=== PATIENT | male | born 1990 | race Hispanic/Latino ===

== ENCOUNTER 2017-10-16 19:28 | Emergency (ER) | payer OTHER ==
[~2017-10-16] VITALS: Ht 172.7 cm; Wt 97.5 kg
--- OUTSIDE RECORDS SUMMARY | 2017-10-16 19:58 | XMS | Clinical Summary ---
Demographics + + + | Address | [address] | | | [place] [address] | + + + | Home Phone | | + + + | Preferred Language | Unknown | + + + | Marital Status | | + + + | Pentecostalism Affiliation | Unknown | + + + | Race | Unknown | + + + | Ethnic Group | Unknown | + + + Author + + + | Author | [facility] | | | and [place] | + + + | Organization | [facility] | | | and [place] | + + + | Address | Unknown | + + + | Phone | Unavailable | + + + Support + + + + + | Name | Relationship | Address | Phone | + + + + + | Babita Celis | ECON | [address] | | | | | [place] | | | | | [address] | | + + + + + | Arlette Doran J | ECON | [address] | | | | | [place] [address] | | + + + + + Care Team Providers + +------+ + | Care Machine Maintenance Supervisor Name | Role | Phone | + +------+ + | No, Physician | PP | Unavailable | + +------+ + Allergies No Known Allergies Current Medications + + +--------+---------+------+------+-------+ | Prescription | Sig. | Disp. | Refills | Star | End | Statu | | | | | | t | Date | s | | | | | | Date | | | + + +--------+---------+------+------+-------+ | ibuprofen | Take 1 tablet by | 20 | 0 | 03/1 | | Activ | | (ADVIL,MOTRIN) 600 | mouth every 6 hours | tablet | | 0/20 | | e | | MG tablet | as needed for Pain | | | 14 | | | | | (Take for up to 5 | | | | | | | | days). | | | | | | + + +--------+---------+------+------+-------+ | | Take 1 tablet by | 15 | 0 | 03/1 | | Activ | | HYDROcodone-acetamin | mouth every 6 hours | tablet | | 0/20 | | e | | ophen (NORCO) 5-325 | as needed for Pain. | | | 14 | | | | mg per tablet | | | | | | | + + +--------+---------+------+------+-------+ Active Problems Not on file Social History + +-------+ +--------+------+ | Tobacco Use | Types | Packs/Day | Years | Date | | | | | Used | | + +-------+ +--------+------+ | Never Smoker | | | | | + +-------+ +--------+------+ + + +---------+ + | Alcohol Use | Drinks/We | oz/Week | Comments | | | ek | | | + + +---------+ + | Yes | | | occasional | + + +---------+ + + + + | Sex Assigned at | Date Recorded | | | | + + + | Not on file | | + + + Last Filed Vital Signs + + + + | Vital Sign | Reading | Time Taken | + + + + | Blood Pressure | 130/86 | 09/01/20132146 PDT | + + + + | Pulse | 78 | 09/01/20132146 PDT | + + + + | Temperature | 36.3 C (97.3 F) | 09/01/20132146 PDT | + + + + | Respiratory Rate | 16 | 09/01/20132146 PDT | + + + + | Oxygen Saturation | 96% | 09/01/20132146 PDT | + + + + | Inhaled Oxygen | - | - | | Concentration | | | + + + + | Weight | 103.4 kg (228 lb) | 09/01/20132146 PDT | + + + + | Height | 167.6 cm (5' 6") | 09/01/20132146 PDT | + + + + | Body Mass Index | 36.8 | 09/01/20132146 PDT | + + + + Plan of Treatment + + + + + | Health Maintenance | Due Date | Last Done | Comments | + + + + + | Vaccine: | | | | | Dtap/Tdap/Td (1 - | 0 | | | | Tdap) | | | | + + + + + | Vaccine: Influenza | | | | | (Season Ended) | 8 | | | + + + + + Results Not on filefrom Last 3 Months Insurance +-------+--------+ +------+ + + | Payer | Benefi | Subscriber | Type | Phone | Address | | | t Plan | ID | | | | | | / | | | | | | | Group | | | | | +-------+--------+ +------+ + + | MOD[employer] | MODA | xxxxxxxxx | PPO | [phone] | [address] [address] | | | [place] | | | [phone] | [place] [address] | | | [place] | | | | | | | [place] | | | | | +-------+--------+ +------+ + + + +--------+ +--------+ + + | Guarantor Name | Accoun | Relation to | Date | Phone | Billing Address | | | t Type | Patient | of | | | | | | | | | | + +--------+ +--------+ + + | WESTLEY CELIS | Person | Self [birth year] | Home: | [address] | | | al/Fam | | 1990 | [phone] | [place] [address] | | | mary | | | 1990 | | + +--------+ +--------+ + +
--- OUTSIDE RECORDS SUMMARY | 2017-10-16 19:58 | XMS | Clinical Summary ---
Demographics + + + | Address | [address] | | | [place] [address] | + + + | Home Phone | | + + + | Preferred Language | Unknown | + + + | Marital Status | | + + + | Sikh Affiliation | Unknown | + + + | Race | Unknown | + + + | Ethnic Group | Unknown | + + + Author + + + | Author | [facility] | | | and [place] | + + + | Organization | [facility] | | | and [place] | [...] [place] | | | | | [address] | | + + + + + | Arlette Doran J | ECON | [address] | | | | | [place] [address] | | + + + + + Care Team Providers + +------+ + | Care Big 6 Dealer Name | Role | Phone | + [...] | [employer] | xxxxxxxxx | PPO | [phone] | [address] [address] | | | [place] | | | [phone] | [place] [address] | | | [place] | | | [...] Self | [birth year] | Home: | [address] | | | al/Fam | | 1990 | [phone] | [place] [address] | | | mary | | | 1990 | | + +--------+ +--------+ + +
== END 2017-10-16 21:10 | disposition home or self-care (01) ==
LOC: ED 19:28
PROC: 0HQ1XZZ Repair Face Skin, External Approach (ICD-10-PCS; principal; 2017-10-16)
DX: S01.112A Laceration without foreign body of left eyelid and periocular area, initial encounter (principal); Z91.011 Allergy to milk products; W26.8XXA Contact with other sharp object(s), not elsewhere classified, initial encounter; Y92.39 Other specified sports and athletic area as the place of occurrence of the external cause; Z23 Encounter for immunization
CPT/HCPCS: 12011; 90471; 90715; 99282

== ENCOUNTER → 2018-06-22 | Emergency (ER) | payer OTHER ==
[~2018-06-22] VITALS: Ht 172.7 cm; Wt 97.5 kg
[~2018-06-22] MED LIST: AMOXICILLIN500 MG PO; TRAMADOL HCL50 MG PO
== END ==
LOC: ED 18:48
DX: J02.0 Streptococcal pharyngitis (principal); E03.9 Hypothyroidism, unspecified; Z91.011 Allergy to milk products
CPT/HCPCS: 80053; 85025; 87502; 87880; 96361; 96374; 96375; 99284-25; J1200; J1885; J2765; J7030

== ENCOUNTER → 2018-11-09 | Emergency (ER) | payer OTHER ==
[~2018-11-09] VITALS: Ht 172.7 cm; Wt 95.2 kg
--- OUTSIDE RECORDS SUMMARY | ~2018-11-09 | XMS | Clinical Summary ---
Demographics + + + | Address | [address] | | | [place] [address] | + + + | Home Phone | | + + + | Preferred Language | Unknown | + + + | Marital Status | | + + + | Restorationism Affiliation | Unknown | + + + | Race | Unknown | + + + | Ethnic Group | Unknown | + + + Author + + + | Author | [facility] | | | and [place] | + + + | Organization | [facility] | | | and [place] | + + + | Address | Unknown | + + + | Phone | Unavailable | + + + Support + + + + + | Name | Relationship | Address | Phone | + + + + + | Babita Sheets | ECON | [address] | | | | | [place] | | | | | [address] | | + + + + + | Arlette Doran J | ECON | [address] | | | | | [place] [address] | | + + + + + Care Team Providers + +------+ + | Care Boat Designer Name | Role | Phone | + +------+ + | No, Physician | PP | Unavailable | + +------+ + Allergies No Known Allergies Medications + + + +---------+------+------+-------+ | Medication | Sig | Dispensed | Refills | Star | End | Statu | | | | | | t | Date | s | | | | | | Date | | | + + + +---------+------+------+-------+ | ibuprofen | Take 1 tablet by [...] | | | | | + + + +---------+------+------+-------+ | | Take 1 tablet by | 15 | 0 | 03/1 | | Activ | | HYDROcodone-acetamin | mouth every 6 hours | tablet | | 0/20 | | e | | ophen (NORCO) 5-325 | as needed for Pain. | | | 14 | | | | mg per tablet | | | | | | | + + + +---------+------+------+-------+ Active Problems Not on file Social History [...] on file | | + + + + + + + | Job Start Date | Occupation | Industry | + + + + | Not on file | Not on file | Not on file | + + + + + + + + | Travel History | Travel Start | Travel End | + + + + + + | No recent travel history available. | + + Last Filed Vital Signs + + + + | Vital Sign | Reading | Time Taken | + + + + | Blood Pressure | 130/86 | 09/01/2013 2147 PDT | + + + + | [...] | | | | (Season Ended) | 9 | | | + + + + + Results Not on filefrom Last 3 Months Insurance +-------+--------+ +--------+ + +------+ | Payer | Benefi | Subscriber | Effect | Phone | Address | Type | | | t Plan | ID | berenice | | | | | | / | | Dates | | | | | | Group | | | | | | +-------+--------+ +--------+ + +------+ | MOD[employer] | MODA | [id number] | | [phone] | [address] | PPO | | | [place] | | [phone] | | | | [place] | | esent | | [place], | | | | [place] | | | | [place] [address] | | +-------+--------+ +--------+ + +------+ + +--------+ +--------+ + + | Guarantor Name | Accoun | Relation to | Date | Phone | Billing Address | | | t Type | Patient | of | | | | | | | | | | + +--------+ +--------+ + + | Ricardo Sheets | Person | Self [birth year] | [address] | | | al/[place] | | 1991 | [phone] | [place] [address] | | | mary | | | 1 (Home) | | + +--------+ +--------+ + + Advance Directives Patient has advance care planning documents on file. For more information, please contact:[facility] [place] [address]
--- OUTSIDE RECORDS SUMMARY | ~2018-11-09 | XMS | Clinical Summary ---
Demographics + + + | Address | [address] | | | [place] [address] | + + + | Home Phone | | + + + | Preferred Language | Unknown | + + + | Marital Status | | + + + | Orthodox Affiliation | Unknown | + + + | Race | Unknown | + + + | Ethnic Group | Unknown | + + + Author + + + | Author | [facility] | | | and [place] | + + + | Organization | [facility] | | | and [place] [...] [place] | | | | | [address] | | + + + + + | Arlette Doran J | ECON | [address] | | | | | [place] [address] | | + + + + + Care Team Providers + +------+ + | Care Slat Basket Maker Machine Name | Role | Phone | + [...] + +------+ | [employer] | MODA | [id number] | | [phone] | [address] | PPO | | | [place] | | [phone] | [phone] | | | | [place] | | esent | | [place], | | | | [place] | | | | [place] [address] | | +-------+--------+ +--------+ + +------+ + [...] | 1991 | [phone] | [place] [address] | | | mary | | | 1 (Home) | | + +--------+ +--------+ + + Advance Directives Patient has advance care planning documents on file. For more information, please contact:[facility] [place] [address]
== END ==
LOC: ED 21:54
DX: S01.511A Laceration without foreign body of lip, initial encounter (principal); Z53.21 Procedure and treatment not carried out due to patient leaving prior to being seen by health care provider